=== PATIENT | female | born 1955 | race Caucasian/White ===

== ENCOUNTER → 2018-04-06 14:28 | Outpatient (CLI) | payer MEDICARE, OTHER, SELFPAY ==
[2014-03-25 09:40] VITALS: BMI 47.5
--- NOTE | 2018-04-06 13:21 | RAD_ITS ---
STUDY: X-RAY CHEST REASON FOR EXAM: Female, 62 years old. Asthma and congestive heart failure. TECHNIQUE: PA and lateral views of the chest. COMPARISON: Chest radiograph dated September 15, 2014. FINDINGS: The lungs are expanded. There are prominent bronchovascular markings in both lungs. There are small bilateral pleural effusions. There is mild cardiac enlargement. Normal mediastinum and latoya. There is prominence of the pulmonary hilar arteries with peripheral pulmonary vascular congestion. Normal visualized aortic arch and descending thoracic aorta. There are diffuse degenerative changes of the visualized thoracic spine. There are degenerative changes of both shoulders. There is no demonstrated abnormality of the visualized soft tissue structures of the upper abdomen. RAD/Chest PA and Lateral IMPRESSION: Mild cardiomegaly and pulmonary congestion. Electronically Signed: Emily Doe MD at 7:08 EST , Service support ,
[2018-04-06 15:44] LABS: BNP,B-Type NATRIURETIC PEPTIDE 146.2 pg/mL (0-100)
== END ==
PROVIDERS: Family Provider Physician Assistant Medical; PCP Physician Assistant Medical; Referring Provider Internal Medicine Pulmonary Disease; Visit Provider Internal Medicine Pulmonary Disease
DX: J45.909 Unspecified asthma, uncomplicated (principal); I50.9 Heart failure, unspecified; R06.00 Dyspnea, unspecified
CPT/HCPCS: 36415; 71046; 83880

== ENCOUNTER → 2018-05-25 12:26 | Outpatient (CLI) | payer MEDICARE, OTHER, SELFPAY ==
--- NOTE | 2018-05-25 12:31 | BI_ITS ---
MAMMOGRAPHY - BILATERAL SCREENING REASON FOR EXAM: Female, 62 years old. Routine annual screening examination. PERTINENT HISTORY: Aunt with breast cancer. Remote right stereotactic breast biopsy. TECHNIQUE: Digital bilateral breast jaguar (3D mammographic acquisition) in the CC and MLO projections. 2-D mediolateral oblique (MLO) and craniocaudad (CC) views of both breasts were obtained. CAD: Full Field Digital Mammography with Computer Added Detection was performed. COMPARISON: Comparison is made with prior study dated April 14, 2017 and March 24, 2016. FINDINGS: Breast Composition: There are scattered areas of fibroglandular density. There are no dominant masses or suspicious calcifications. A tissue clip marker is seen in the upper slightly lateral aspect of the right breast. Stable appearance of the vascular and secretory calcifications. No other significant abnormalities are identified. There has been no significant change since the prior study. BI/SCREENING MAMM (CAD), BILAT IMPRESSION: Stable bilateral screening mammogram. Yearly follow-up mammogram recommended. (A) ASSESSMENT CATEGORY: BIRADS Category 2: Benign. A letter regarding these results will be sent to the patient by the facility within 30 days. Approximately 10% of breast cancers are not detected by mammography. A normal mammogram should not delay biopsy of a clinically suspicious abnormality. [id number] Electronically Signed: Arian Seymour MD at 15:38 EST Tel [phone], Service support ,
== END ==
PROVIDERS: Family Provider Physician Assistant Medical; PCP Physician Assistant Medical; Referring Provider Physician Assistant Medical; Visit Provider Physician Assistant Medical
DX: Z12.31 Encounter for screening mammogram for malignant neoplasm of breast (principal)
CPT/HCPCS: 77063; 77067

== ENCOUNTER → 2018-07-02 14:46 | Outpatient (CLI) | payer MEDICARE, OTHER, SELFPAY ==
--- NOTE | 2018-07-02 14:53 | VDLE_ITS ---
Reason For Study: Leg edema RIGHT LEFT GSV is normal. GSV is normal. CFV is compressible, spontaneous, phasic, CFV is compressible, spontaneous, phasic, competent and demonstrates normal competent, and demonstrates normal augmentation. augmentation. FV is compressible, spontaneous, phasic, FV is compressible, spontaneous, phasic, competent and demonstrates normal competent and demonstrates normal augmentation. augmentation. POP V is compressible, spontaneous, phasic, POP V is compressible, spontaneous, phasic, competent and demonstrates normal competent and demonstrates normal augmentation. augmentation. T/P Trunk is compressible. T/P Trunk is compressible. PTV is compressible. PTV is compressible. RT PerV is compressible. LT PerV is compressible. Procedure Exam performed in department. A preliminary report was called and/or faxed to [facility]. Interpretation Summary Deep veins of the lower extremities are bilaterally patent and compressible segmentally. There is no evidence of deep vein thrombosis on either side. Valvular competence appears intact within the proximal deep venous systems bilaterally. The greater saphenous veins appear bilaterally patent and compressible segmentally. Ordering Physician: Demetris Cutler Referring Physician: Vaishnavi Dillon Performed By: Anabel De Leon RVT and Student
== END ==
PROVIDERS: Family Provider Physician Assistant Medical; PCP Physician Assistant Medical; Referring Provider Internal Medicine Pulmonary Disease; Visit Provider Internal Medicine Pulmonary Disease
DX: R60.0 Localized edema (principal)
CPT/HCPCS: 93970

== ENCOUNTER → 2018-07-09 14:00 | Outpatient (CLI) | payer MEDICARE, OTHER, SELFPAY ==
--- NOTE | 2018-07-09 14:04 | CT_ITS ---
STUDY: CTA CHEST REASON FOR EXAM: Female, 62 years old. Elevated d-dimer with dyspnea. Evaluate for pulmonary embolism RADIATION DOSAGE (If Supplied By Facility): CTDIvol = ( 16.72 ) mGy, DLP = ( 660.50 ) mGycm TECHNIQUE: The examination was performed with the intravenous administration of Isovue 370 100 IV. Post-processing of the angiographic images was performed, with multiplanar reformation and 3D reconstruction. Individualized dose optimization techniques were used for this CT. COMPARISON: None. FINDINGS: Normal enhancement of the main pulmonary artery and right and left pulmonary arteries. Normal enhancement of the bilateral peripheral pulmonary arteries. There is no demonstrated pulmonary embolism. Normal thoracic aorta and visualized great vessels. There is no demonstrated aortic dissection. Mild cardiomegaly. Normal pericardium. Calcified mediastinal and hilar lymph nodes. No suspicious lymphadenopathy. Normal visualized trachea and bronchi. The lungs are well expanded. There appears to be slight interstitial vascular congestion noted throughout the lungs. This could represent mild pulmonary edema. Otherwise, the lungs are clear without acute findings Normal pleura. Normal chest wall structures. There are degenerative changes of thoracic spine. Normal visualized upper abdomen. CT/CTA Chest W/WO Contrast IMPRESSION: 1. Negative for pulmonary embolism or thoracic aortic dissection 2. Mild cardiomegaly with mild pulmonary vascular congestion throughout 3. No focal consolidation or infiltrates. Electronically Signed: Alvaro Briggs DO at 15:21 EST Tel , Service support ,
== END ==
PROVIDERS: Family Provider Physician Assistant Medical; PCP Physician Assistant Medical; Referring Provider Internal Medicine Pulmonary Disease; Visit Provider Internal Medicine Pulmonary Disease
DX: R79.89 Other specified abnormal findings of blood chemistry (principal); R06.00 Dyspnea, unspecified
CPT/HCPCS: 71275; Q9967; A4216

== ENCOUNTER → 2018-09-28 | Outpatient (CLI) | payer MEDICARE, OTHER, SELFPAY ==
[2014-03-25 09:40] VITALS: BMI 47.5
[2018-09-28 09:20] LABS: Allen Test POS; Base Excess 1 mmol/L (-2 to +2); Bicarbonate 25.3 mmol/L (22-26); Blood Gas Specimen Type ART; O2 Delivery Device Room Air; PO2 71 mmHG (75-100); SITE R Radial; SO2 94 % (95-99); Time Given 912; Total Carbon Dioxide 26 mmol/L; pH 7.41 (7.35-7.45)
== END | disposition home or self-care (01) ==
LOC: LAB.FUTURE 08:39
PROVIDERS: Family Provider Physician Assistant Medical; PCP Physician Assistant Medical; Referring Provider Internal Medicine Pulmonary Disease; Visit Provider Internal Medicine Pulmonary Disease
DX: J45.909 Unspecified asthma, uncomplicated (principal); R09.02 Hypoxemia; G47.33 Obstructive sleep apnea (adult) (pediatric); E66.9 Obesity, unspecified
CPT/HCPCS: 36600; 82803

== ENCOUNTER → 2019-06-13 13:25 | Outpatient (CLI) | payer MEDICARE, SELFPAY ==
--- NOTE | 2019-06-13 13:29 | BI_ITS ---
MAMMOGRAPHY - BILATERAL SCREENING REASON FOR EXAM: Female, 63 years old. Routine annual screening examination. PERTINENT HISTORY: Aunt with breast cancer. Remote right stereotactic breast biopsy. TECHNIQUE: Digital bilateral breast lito (3D mammographic acquisition) in the CC and MLO projections. 2-D mediolateral oblique (MLO) and craniocaudad (CC) views of both breasts were obtained. CAD: Full Field Digital Mammography with Computer Added Detection was performed. COMPARISON: Comparison is made with prior examination dated May 25, 2018 and April 14, 2017. FINDINGS: Breast Composition: There are scattered areas of fibroglandular density. There are no dominant masses or suspicious calcifications. Stable bilateral secretory calcification. A tissue clip marker is once again seen in the upper slightly lateral aspect of the right breast. No other significant abnormalities are identified. There has been no significant change since the prior study. BI/SCREEN MAMM (CAD) W/LITO BILAT IMPRESSION: Stable bilateral screening mammogram. Yearly follow-up mammogram recommended. (A) ASSESSMENT CATEGORY: BIRADS Category 2: Benign. A letter regarding these results will be sent to the patient by the facility within 30 days. Approximately 10% of breast cancers are not detected by mammography. A normal mammogram should not delay biopsy of a clinically suspicious abnormality. [id number] Electronically Signed: Arian Seymour, at 15:25 EST , Service support ,
== END ==
PROVIDERS: Family Provider Physician Assistant Medical; PCP Physician Assistant Medical; Referring Provider Physician Assistant Medical; Visit Provider Physician Assistant Medical
DX: Z12.31 Encounter for screening mammogram for malignant neoplasm of breast (principal)
CPT/HCPCS: 77063; 77067

== ENCOUNTER → 2020-07-03 13:31 | Outpatient (CLI) | payer MEDICARE, SELFPAY ==
--- NOTE | 2020-07-03 13:34 | BI_ITS ---
MAMMOGRAPHY - BILATERAL SCREENING REASON FOR EXAM: Female, 64 years old. Routine annual screening examination. PERTINENT HISTORY: Grandmother with breast cancer. Aunt with breast cancer. Prior right stereotactic breast biopsy. TECHNIQUE: Digital bilateral breast lito (3D mammographic acquisition) in the CC and MLO projections. 2-D mediolateral oblique (MLO) and craniocaudad (CC) views of both breasts were obtained. CAD: Full Field Digital Mammography with Computer Added Detection was performed. COMPARISON: Comparison is made with prior examination dated 06/13/2019 and 05/25/2018. FINDINGS: Breast Composition: There are scattered areas of fibroglandular density. There are no dominant masses or suspicious calcifications. Stable bilateral secretory calcifications. Once again, a tissue clip marker is seen in the upper slightly lateral aspect of the right breast. No other significant abnormalities are identified. There has been no significant change since the prior study. BI/SCRN MAMM (CAD)W/LITO BILAT IMPRESSION: Stable bilateral screening mammogram. Yearly follow-up mammogram recommended. (A) ASSESSMENT CATEGORY: BIRADS Category 2: Benign. A letter regarding these results will be sent to the patient by the facility within 30 days. Approximately 10% of breast cancers are not detected by mammography. A normal mammogram should not delay biopsy of a clinically suspicious abnormality. [id number] Electronically Signed: Arian Seymour MD at 15:11 EST , Service support ,
== END ==
PROVIDERS: PCP Physician Assistant Medical; Referring Provider Physician Assistant Medical; Visit Provider Physician Assistant Medical
DX: Z12.31 Encounter for screening mammogram for malignant neoplasm of breast (principal)
CPT/HCPCS: 77063; 77067

== ENCOUNTER 2020-12-03 09:35 | Outpatient (RCR) | payer MEDICARE, SELFPAY ==
--- NOTE | 2020-12-03 10:48 | HP.PTEVAL_ITS ---
Patient's Visit Information BEA PUTNAM is a 65 year old F referred to Physical Therapy by TARIK Connors with a diagnosis of . Date of Evaluation: 12/03/20 Physical Therapist: Susan Pham DPT - Visit Plan Frequency: 1x/Week Duration: 1 Week Plan: Wheelchair/Mobility Evaluation - Subjective Patient reports that she has had 3 Hooverrounds but she always had to purchase them herself- she has had the current one for about 3 years- starting to fall apart and needs to be replaced. She has been w/c bound for about 8 years. Lives in a single story home with her - who is able to help care for her. He helps with ADL's. She has no stairs to enter. She sleeps in a regular bed that goes up and down. She can only do about 4 steps to transfer when she is holding into something. She does have a walker but the right shoulder doesn't work so she is unable to use it. She only transfers from the chair into another chair. She uses the wheelchair in the bathroom. Equip with grab bars, shower chair and is handicapped accessible. Has a disability van that she can use to get out into the community. She does not drive and spends most of her time at home. Mostly only goes out for MD melgoza and small grocery shopping with her . She has pain in her right shoulder and low back. Worst: 6/10- describes the pain as achy. Best: 0/10 Eases: laying down but she hates to be down. Uses O2 at night and sometimes during the day when she goes out. When she exerts herself it worse and she uses it more- 3L. Last fall was about a month ago- she is very careful. She is home alone during the day- no aides but her is close if she needs him. PMHx/Meds: all listed in the information that was sent from . Right hand dominate - Objective Posture: FH, RS, increased kyphosis- does not correct even given verbal and tactile cues. Gait: unable to ambulate- transfers only. AROM: Finger Dexterity limited- able to make a fist on each side, Elbow: WFL Shoulder: Left: WFL Right: Flexion: 70 degrees with significant compensation Abd: 30 degrees with significant compensation. PROM: Right shoulder WFL Cervical: WFL. Hip: WFL Knee: WFL Ankle: WFL. Strength: Electrical [employer]ic: Left: 20Lbs of force, Right: 15 lbs of force, Elbow: Flexion: Left: 4+/5 Right: 4-/5, Shoulder: Left: 4+/5, Right: 2/5. Scap: poor, Core: poor. Hip: Flexion: 3+/5, abd/add: 4+/5, Extn: 4-/5. Knee: 4-/5 Ankle: 4/5. Transfer: sit to stand: no A required- did use UE - can stand for up to 1 min before required to sit down. Unable to take more than 2 steps left or right. Observation: skin on LE is intact but dry, red and flacky- poor blood flow. Balance: sitting static: good, dynamic: fair plus Standing: static with UE A: fair dynamic: poor - Rehabilitation Potential Rehabilitation Potential: Fair - Anticipated Interventions Thank you for the opportunity to evaluate your patient. For Medicare and Medicare HMO plans, please review the plan of care and approve it. It will need to be FAXED BACK to us at [phone] for Medicare purposes. For Medicare only, by signing this I certify the plan of care. Please let me know if there are questions or concerns regarding this plan of care. Physician Signature: Date:
--- NOTE | 2021-03-22 08:44 | HP.PTDCSUM ---
It has been my pleasure to treat BEA PUTNAM referred by TARIK Connors, with the diagnosis of for a total of 1 visit(s). Discharge Date: Please see the following information for a summary of their discharge status. Plan: Wheelchair/Mobility Evaluation If there are questions or concerns regarding this patient's physical therapy, please feel free to call me at [phone]. Thank you for the referral of this patient. Sincerely, DAISHA OseiT
== END 2020-12-03 19:00 | disposition home or self-care (01) ==
LOC: PT 09:35
PROVIDERS: PCP Physician Assistant Medical; Referring Provider Physician Assistant Medical; Visit Provider Physician Assistant Medical
DX: M54.5 Low back pain (principal); E66.8 Other obesity; M06.9 Rheumatoid arthritis, unspecified
CPT/HCPCS: 97162